=== PATIENT | female | born 1980 | race Caucasian/White ===

== ENCOUNTER 2023-05-11 16:13 | Emergency (ER) | payer BC ==
--- NOTE | 2023-05-11 16:15 | ERPHSYRPT ---
- History of Present Illness Time Seen by Provider: 05/11/23 16:15 Source: patient Exam Limitations: no limitations Allergies/Adverse Reactions: No Known Drug Allergies Allergy (Unverified 05/11/23 16:21) - Past Medical History Neurological History: No Pertinent History Cardiac History: No Pertinent History Respiratory History: Other Endocrine Medical History: No Pertinent History Musculoskeletal History: Other Other Medical History: HX OF COVID. NO RESIDUAL AND NOT VACINNATED. - Nursing Vital Signs Nursing Vital Signs: Initial Vital Signs Pulse Rate 83 05/11/23 16:23 Respiratory Rate 18 05/11/23 16:23 Blood Pressure 128/87 05/11/23 16:23 O2 Sat by Pulse Oximetry 98 05/11/23 16:23 Pain Scale Pain Intensity 5 Ordered Tests: Active Orders 24 hr Category Date Time Status ANKLE (3 VIEWS) Stat Exams 05/11/23 16:20 Completed FOOT (MINIMUM 3 VIEWS) Stat Exams 05/11/23 16:20 Completed - Progress Progress: unchanged, pain not gone completely, re-examined Progress Note: 05/11/23 17:33 This patient's medical issue is 1 of low complexity. The level complex in the workup performed is based on review of the patient's past medical history, review of the patient's medication list, review of patient drug allergy list, history present illness and physical findings on examination. The workup in this patient includes x-ray of the patient's right foot and right ankle. I performed the initial interpretation. The right ankle shows no acute fracture or dislocation. The x-ray of the right foot shows a old versus new avulsion fx lateral to calcaneus 05/11/23 17:41 pt declines narcotics. pt has walking boot at home Counseled pt/family regarding: diagnosis, need for follow-up, rad results Medical Desision Making - Independent Historian Additional History obtained from: Spouse - Diagnostic Testing Diagnostic test were ordered, analyzed, and reviewed by me: Yes Radiological Interpretation: Interpreted by me, Reviewed by me, Teleradiologist Report - Risk of complications Minimal Risk: Minimal risk of morbidity - Departure Departure Disposition: Home Clinical Impression: Avulsion fracture of calcaneus Condition: Stable Critical Care Time: No Referrals: ASHLEY WREN NP [Primary Care Provider] - Follow up/PCP as directed Additional Instructions: ice pack to area 3 times daily. use tylenol and ibuprofen for pain. follow up with dr. romo for persistent symptoms
--- NOTE | 2023-05-11 17:15 | XRAY ---
Indication: Pain following twisting injury. Comparison: None 3 view right ankle demonstrates 4 mm curvilinear ossification lateral to distal calcaneus with soft tissue swelling worrisome for tiny cortical avulsion fracture. No other bony, articular, or soft tissue abnormalities.
--- NOTE | 2023-05-11 17:15 | XRAY ---
Indication: Pain following twisting injury. Comparison: None 3 nonweightbearing views right foot demonstrates 4mm curvilinear ossification lateral to distal calcaneus laterally with soft tissue swelling favoring tiny cortical avulsion fracture. No other bony, articular, or soft tissue abnormalities.
[2023-05-11 17:51] VITALS: BP 119/86; PULSE 80; RESP 16; O2SAT 99
== END 2023-05-11 17:52 | disposition home or self-care (01) ==
LOC: ED 16:13
DX: S92.001A Unspecified fracture of right calcaneus, initial encounter for closed fracture (principal)
CPT/HCPCS: 73610; 73630; 99282